=== PATIENT | female | born 1995 | race Caucasian/White ===

== ENCOUNTER → 2017-02-22 | Outpatient (CLI) | payer BC ==
[~2017-02-22] MED LIST: IOPAMIDOL (ISOVUE-300) 100 ML BTL ONE
== END ==
LOC: FIMAGING 15:56
PROVIDERS: ATTEND Physician Assistant
DX: R10.32 Left lower quadrant pain (principal); R19.4 Change in bowel habit
CPT/HCPCS: Q9967

== ENCOUNTER 2017-10-31 00:50 | Emergency (ER) | payer BC ==
[2017-10-31] MEDS ORDERED: LET GEL TOPICAL 1 EA SYR TP ONE ×2 (01:56→01:57)
--- NOTE | 2017-10-31 02:57 | EDPHY ---
H & P Stated Complaint: fall off longboard Time Seen by Provider: 10/31/17 02:37 HPI/ROS: HPI: The patient presents with a fall while skateboarding, landing onto her right gaona and both palm says. She did not lose consciousness. She has been able to walk. She has sustained abrasions to her palm and her gaona. She has full range of motion of her wrist. She describes some aching pain which is improved after let was applied. She denies any numbness or tingling. REVIEW OF SYSTEMS Constitutional: No fever, no chills. Skin: No rashes. Neurological: No headache. PMHx: Healthy TRAUMA PHYSICAL General Appearance: Alert, no distress Head: Atraumatic Respiratory: Breathing comfortably Cardiovascular: Regular rate and rhythm Skin: Large abrasions to entire anterior right gaona with abrasions and ecchymoses bilaterally to proximal palm Extremities: Mild tenderness to palpation of the left metacarpals without any tenderness at the anatomic snuffbox, no pain with axial loading of the thumb, 2 + radial pulses bilaterally with full range of motion of the wrist and fingers Neurological: A&Ox3, GCS=15,normal motor function with 5/5 strength in all 4 extremities, normal sensory exam Source: Patient Exam Limitations: No limitations - Personal History LMP (Females 10-55): 15-21 Days Ago Current Tetanus/Diphtheria Vaccine: Yes Tetanus Vaccine Date: 2017 - Medical/Surgical History Hx Asthma: No Hx Chronic Respiratory Disease: No Hx Diabetes: No Hx Cardiac Disease: No Hx Renal Disease: No Hx Cirrhosis: No Hx Alcoholism: No Hx HIV/AIDS: No Hx Splenectomy or Spleen Trauma: No Other PMH: dental windows, appendectomy. chronic back pain - Social History Smoking Status: Never smoked Constitutional: Initial Vital Signs Temperature (C) 36.4 C 10/31/17 00:52 Heart Rate 95 10/31/17 00:52 Respiratory Rate 16 10/31/17 00:52 Blood Pressure 119/86 H 10/31/17 00:52 O2 Sat (%) 99 10/31/17 00:52 O2 Delivery Mode Room Air Allergies/Adverse Reactions: doxycycline Allergy (Verified 04/16/15 01:49) latex Allergy (Verified 04/22/12 21:12) Sulfa (Sulfonamide Antibiotics) [Sulfa(Sulfonamide Antibiotics)] Allergy ( Verified 04/22/12 21:12) Home Medications: Medication Instructions Recorded NK [No Known Home Meds] 04/16/15 Medical Decision Making - Diagnostics Imaging Results: X-ray left hand three view shows no fracture, no dislocation, interpreted by me , radiology interpretation is pending. Imaging: I viewed and interpreted images myself Differential Diagnosis: This is a 22-year-old female who presents from home after fall onto outstretched hands and gaona while skateboarding. On exam, she has significant abrasions with some ecchymoses to her left palm. X-rays of left hand show no acute fracture. Differential diagnoses considered include hand sprain, hand fracture, abrasions. We have discussed wound care and provided this to her today. We have given her instructions for rice. She will be discharged home. - Data Points Medications Given: Discontinued Medications Tetracaine/Epinephrine/Lidocaine (Let Gel Topical) 2 ea TP EDNOW ONE Stop: 10/31/17 01:58 Last Admin: 10/31/17 01:59 Dose: 2 ea Departure - Departure Disposition: Home, Routine, Self-Care Clinical Impression: Fall from skateboard, initial encounter, Abrasions of multiple sites, Sprain of hand, left Condition: Good Instructions: Abrasion (ED), Acute Wounds (ED), R.I.C.E. Treatment (ED) Additional Instructions: Please return to the emergency department if your worse in any way. Your x- rays will be read by the radiologist in the morning and if they see any fractures that I did not, we will call you at home. Referrals: JULIOCESAR VELÁZQUEZ [Primary Care Provider] - As per Instructions
[2017-10-31 03:25] VITALS: BP 119/80
== END 2017-10-31 03:26 | disposition home or self-care (01) ==
DX: S80.811A Abrasion, right lower leg, initial encounter (principal); S60.511A Abrasion of right hand, initial encounter; S60.512A Abrasion of left hand, initial encounter; S63.92XA Sprain of unspecified part of left wrist and hand, initial encounter; Z91.040 Latex allergy status; V00.131A Fall from skateboard, initial encounter; Y99.8 Other external cause status; Y93.51 Activity, roller skating (inline) and skateboarding
CPT/HCPCS: L3807

== ENCOUNTER → 2017-11-09 | Outpatient (CLI) | payer BC | LOC: FIMAGING 10:12 | PROVIDERS: ATTEND Internal Medicine | DX: M25.532 Pain in left wrist (principal) ==

== ENCOUNTER → 2017-12-28 | Outpatient (CLI) | payer BC ==
[~2017-12-28] MED LIST changes: +GADOBUTROL 10 ML VIAL IVP ONE; -IOPAMIDOL (ISOVUE-300) 100 ML BTL ONE
== END ==
LOC: FIMAGING 11:45
PROVIDERS: ATTEND Internal Medicine Hematology & Oncology
DX: N63.21 Unspecified lump in the left breast, upper outer quadrant (principal); N63.12 Unspecified lump in the right breast, upper inner quadrant; Z15.01 Genetic susceptibility to malignant neoplasm of breast
CPT/HCPCS: 0159T; 77059; A9585; C8908